=== PATIENT | male | born 1945 | race Caucasian/White ===

== ENCOUNTER 2016-09-13 02:17 | Emergency (ER) | payer OTHER ==
[~2016-09-13] VITALS: Ht 180.3 cm; Wt 104.3 kg
[~2016-09-13 02:17] MED LIST: ASPIRIN EC81 MG PO; CARDURA4 MG PO; COREG25 MG PO; DIABETA2.5 MG PO; ELAVIL 50 MG TA50 MG PO; FENOFIBRATE48 MG PO; GLUCOPHAGE1000 MG PO; IMDUR ER TAB 6060 MG PO; K-DUR TAB 10 M10 MEQ PO; LASIX20 MG PO; LIPITOR80 MG PO; LISINOPRIL30 MG PO; NITROSTAT0.4 MG SL; NORVASC10 MG PO; PRILOSEC20 MG PO; TOPAMAX25 MG PO; VENTOLIN HFA8 GM INH
[2016-09-13 03:47] LABS: HEMOGLOBIN 14.9 gm/dl (14.0-17.5); RED BLOOD COUNT 5.02 M/UL (4.20-5.50); WHITE BLOOD COUNT 8.7 K/UL (4.5-11.0)
[2016-09-13 04:06] LABS: BUN/CREATININE RATIO 14 (0-10)
[2016-09-13] MEDS ORDERED: IPRAT-ALBUT 0.5-3 ML INH (10:17)
[2016-09-13] MEDS ORDERED: NEURONTIN 400400 MG PO (10:17)
[2016-09-13] MEDS ORDERED: CLARITIN10 M2 PO (10:18)
[2016-09-13] MEDS ORDERED: OPANA ER7.5 MG PO (10:18)
[2016-09-13] MEDS ORDERED: MOBIC15 MG PO (10:20)
[2016-09-13] MEDS ORDERED: ZANAFLEX4 M1 PO (10:23)
[2016-09-13] MEDS ORDERED: JANUVIA100 MG PO (10:23)
== END 2016-09-13 14:27 | disposition home or self-care (01) ==
LOC: ER1 02:17 → ZEROF 04:55 → ER1 14:27
PROVIDERS: Emergency Medicine
DX: R07.89 Other chest pain (principal); I21.3 ST elevation (STEMI) myocardial infarction of unspecified site; Z95.810 Presence of automatic (implantable) cardiac defibrillator; Z79.899 Other long term (current) drug therapy; Z79.84 Long term (current) use of oral hypoglycemic drugs
CPT/HCPCS: 36415; 71010; 80053; 82550; 82553; 83605; 83874; 83880; 84484; 85025; 87040; 93005; 94640; 94664; 96374; 99285; J2930